=== PATIENT | female | born 1965 | race African-American/Black ===

== ENCOUNTER 2018-03-21 00:48 | Inpatient (IN) | payer MEDICAID ==
[~2018-03-21] VITALS: Ht 157.5 cm; Wt 63.7 kg
[2018-03-21] MEDS ORDERED: IPRATROPIUM/ALBUTEROL 0.5-3(2.5)MG/3ML NEB HHN ONE (03:15)
[2018-03-21] MEDS ORDERED: IBUPROFEN 600MG TABLET PO ONE (03:15)
[2018-03-21] MEDS ORDERED: ONDANSETRON HCL 4MG/2ML INJ IV ONE ×2 (04:45→09:00)
[2018-03-21] MEDS ORDERED: MORPHINE SULFATE 10 MG/ML CPJ IV ONE (04:45)
[2018-03-21 05:20] LABS: BASOPHILS % 0.5 % (0.0-2.0); EOSINOPHILS % 1.3 % (0.0-5.0); HEMATOCRIT. 38.1 % (36.0-48.0); LYMPHOCYTES % 28.4 % (20.0-50.0); MEAN CORPUSCULAR HEMOGLOBIN 34.7 pg (28.0-32.0); MEAN CORPUSCULAR VOLUME 101.9 fL (81.0-99.0); MEAN PLATELET VOLUME 10.2 fl (7.4-10.4); MONOCYTES % 9.1 % (2.0-8.0); NEUTROPHILS % 60.7 % (40.0-76.0); PLATELET 198 x1000/uL (130-400); RED BLOOD CELL COUNT 3.74 mill/uL (4.2-5.4); RED CELL DISTRIBUTION WIDTH 12.9 % (11.6-14.6)
[2018-03-21 05:27] LABS: CHLORIDE 104 mEq/L (98-107)
[2018-03-21] MEDS ORDERED: METOCLOPRAMIDE HCL 10MG/2ML VIAL IV ONE (06:30)
[2018-03-21] MEDS ORDERED: IOHEXOL-300 100 ML BOTTLE ONE (06:57)
[2018-03-21] MEDS ORDERED: IPRATROPIUM BROMIDE (0.02%) 0.5MG/2.5ML NEB HHN STA (08:25)
[2018-03-21] MEDS ORDERED: ALBUTEROL (0.083%) 2.5MG/3ML NEB HHN STA (08:25)
[2018-03-21] MEDS ORDERED: PREDNISONE 20MG TABLET PO SCH (09:00)
[2018-03-21 10:56] LABS: BG BASE EXCESS 1.2 mmol/L (-2.0-2.0); BG CARBOXYHEMOGLOBIN 4.4 % (0.5-1.5); BG DEOXYHEMOGLOBIN 18.1 % (0.0-5.0); BG FRACTION INSPIRED OXYGEN 21; BG HCO3 ACT 26.6 mmol/L (22.0-26.0); BG METHEMOGLOBIN 0.2 % (0.0-1.5); BG OXYHEMOGLOBIN 77.3 % (94.0-97.0); BG PCO2 45.4 mmHg (35.0-45.0); BG PH 7.386 (7.350-7.450); BG SAMPLE SITE RIGHT BRACHIAL; BG TOTAL HEMOGLOBIN 13.7 g/dL (12.0-18.0); BG VENT MODE ROOM AIR
[2018-03-21] MEDS ORDERED: CEFTRIAXONE 1 G PREMIX 50 ML IV ONE (11:45)
[2018-03-21] MEDS ORDERED: AZITHROMYCIN 500 MG TABLET PO ONE (11:45)
[2018-03-21 12:13] LABS: BG BASE EXCESS 2.5 mmol/L (-2.0-2.0); BG CARBOXYHEMOGLOBIN 3.9 % (0.5-1.5); BG DEOXYHEMOGLOBIN 16.6 % (0.0-5.0); BG FRACTION INSPIRED OXYGEN 21; BG HCO3 ACT 27.4 mmol/L (22.0-26.0); BG METHEMOGLOBIN 0.2 % (0.0-1.5); BG OXYGEN SATURATION 82.7 % (92.0-98.5); BG OXYHEMOGLOBIN 79.3 % (94.0-97.0); BG PCO2 43.5 mmHg (35.0-45.0); BG PH 7.417 (7.350-7.450); BG PO2 45.9 mmHg (75.0-100.0); BG SAMPLE SITE RIGHT BRACHIAL; BG TOTAL HEMOGLOBIN 13.6 g/dL (12.0-18.0); BG VENT MODE ROOM AIR
[2018-03-21 12:18] LABS: CLARITY URINE CLEAR (CLEAR); COLOR URINE YELLOW (YELLOW); KETONES URINE NEGATIVE (NEGATIVE); LEUKOCYTE ESTERASE URINE NEGATIVE (NEGATIVE); NITRITE URINE NEGATIVE (NEGATIVE); OCCULT BLOOD URINE NEGATIVE (NEGATIVE); PROTEIN URINE TRACE (NEGATIVE); SPECIFIC GRAVITY URINE 1.086 (1.005-1.030); UROBILINOGEN URINE 0.2 E.U./dL (0.2-1.0)
[2018-03-21] MEDS ORDERED: POTASSIUM CHLORIDE 20MEQ TABLET SR PO ONE (14:45)
[2018-03-21] MEDS ORDERED: IPRATROPIUM/ALBUTEROL 0.5-3(2.5)MG/3ML NEB HHN PRN (21:21)
[2018-03-21] MEDS ORDERED: ONDANSETRON HCL 4MG/2ML INJ IV PRN (21:21)
[2018-03-21] MEDS ORDERED: ACETAMINOPHEN 325MG TABLET PO PRN (21:21)
[2018-03-21] MEDS ORDERED: METHYLPREDNISOLONE SOD SUCC 40 MG/ML VIAL IV NR (21:59)
[2018-03-21] MEDS ORDERED: NICOTINE 7MG PATCH TD NR (22:15)
[2018-03-21] MEDS ORDERED: MONTELUKAST SODIUM 10MG TABLET PO NR (22:15)
[2018-03-21] MEDS: HYDROCODONE/ACETAMINOPHEN 5/325MG TABLET PO PRN (22:30)
[2018-03-22 05:26] LABS: BASOPHILS % 0.1 % (0.0-2.0); HEMATOCRIT. 37.4 % (36.0-48.0); HEMOGLOBIN. 12.9 g/dL (12.0-16.0); LYMPHOCYTES % 8.5 % (20.0-50.0); MEAN CORPUSCULAR HEMOGLOBIN 35.2 pg (28.0-32.0); MEAN CORPUSCULAR VOLUME 102.1 fL (81.0-99.0); MEAN PLATELET VOLUME 10.8 fl (7.4-10.4); MONOCYTES % 2.7 % (2.0-8.0); NEUTROPHILS % 88.7 % (40.0-76.0); PLATELET 217 x1000/uL (130-400); RED BLOOD CELL COUNT 3.66 mill/uL (4.2-5.4); RED CELL DISTRIBUTION WIDTH 12.6 % (11.6-14.6)
[2018-03-22 05:32] LABS: CHLORIDE 101 mEq/L (98-107)
[2018-03-22] MEDS ORDERED: METHYLPREDNISOLONE SOD SUCC 40 MG/ML VIAL IV SCH ×2 (06:00→14:00)
[2018-03-22 10:49] VITALS: BP 179/83
[2018-03-22 10:54] VITALS: BP 179/83
[2018-03-22] MEDS: HYDROCODONE/ACETAMINOPHEN 5/325MG TABLET PO PRN ×2 (11:19→20:24)
[2018-03-22] MEDS: NICOTINE 7MG PATCH TD SCH ×2 (11:30→14:58)
[2018-03-22] MEDS ORDERED: TRAZ-212 MT (11:33)
[2018-03-22] MEDS ORDERED: QUET400T MT (11:38)
[2018-03-22] MEDS ORDERED: HYDR12.529 PO (11:38)
[2018-03-22] MEDS ORDERED: ASPI-1159 PO (11:38)
[2018-03-22] MEDS ORDERED: FURO-152 PO (11:38)
[2018-03-22] MEDS ORDERED: FLUO10CA25 PO (11:38)
[2018-03-22] MEDS ORDERED: CLONIDINE 0.1MG TABLET PO PRN (13:30)
[2018-03-22 14:38] LABS: BG BASE EXCESS 2.9 mmol/L (-2.0-2.0); BG CARBOXYHEMOGLOBIN 1.8 % (0.5-1.5); BG DEOXYHEMOGLOBIN 9.1 % (0.0-5.0); BG FRACTION INSPIRED OXYGEN 21; BG HCO3 ACT 26.2 mmol/L (22.0-26.0); BG METHEMOGLOBIN 0.3 % (0.0-1.5); BG OXYGEN SATURATION 90.7 % (92.0-98.5); BG OXYHEMOGLOBIN 88.8 % (94.0-97.0); BG PO2 57.4 mmHg (75.0-100.0); BG SAMPLE SITE RIGHT BRACHIAL; BG TOTAL HEMOGLOBIN 13.9 g/dL (12.0-18.0); BG VENT MODE ROOM AIR
[2018-03-22 16:00] VITALS: BP 138/75
[2018-03-22] MEDS ORDERED: LEVOFLOXACIN 750MG PREMIX 150 ML IV SCH (19:00)
[2018-03-22] MEDS: MONTELUKAST SODIUM 10MG TABLET PO SCH (20:25)
[2018-03-22] MEDS: AMLODIPINE 5MG TABLET PO SCH (20:25)
[2018-03-23] MEDS: IPRATROPIUM/ALBUTEROL 0.5-3(2.5)MG/3ML NEB HHN SCH ×8 (04:00→20:37)
[2018-03-23] MEDS: HYDROCODONE/ACETAMINOPHEN 5/325MG TABLET PO PRN ×2 (04:08→20:53)
[2018-03-23 08:00] VITALS: BP_SYST 148; BP_SYST 153; BP_DIAS 81; BP_DIAS 89
[2018-03-23] MEDS: AMLODIPINE 5MG TABLET PO SCH ×2 (09:09→22:54)
[2018-03-23] MEDS: PREDNISONE 20MG TABLET PO SCH (09:09)
[2018-03-23] MEDS: LEVOFLOXACIN 750MG PREMIX 150 ML IV SCH (09:41)
[2018-03-23 14:01] VITALS: BP 149/90
[2018-03-23 16:00] VITALS: BP 140/83
[2018-03-23 19:01] LABS: LDL CHOLESTEROL 96 mg/dL (5-100)
[2018-03-23 19:03] LABS: CREATINE KINASE 67 IU/L (26-192)
[2018-03-23 19:04] LABS: CREATINE KINASE MB FRACTION < 1.0 ng/mL (0.5-3.6)
[2018-03-23 19:09] LABS: HDL CHOLESTEROL 102 mg/dL (40-59)
[2018-03-23 20:00] VITALS: BP 148/91
[2018-03-23] MEDS: HYDRALAZINE HCL 25MG TABLET PO SCH (22:53)
[2018-03-23] MEDS: MONTELUKAST SODIUM 10MG TABLET PO SCH (22:53)
[2018-03-24] VITALS (7 sets, daily range): BP systolic 115–153; BP diastolic 63–94
[2018-03-24] MEDS: IPRATROPIUM/ALBUTEROL 0.5-3(2.5)MG/3ML NEB HHN SCH ×7 (00:34→20:27)
[2018-03-24] MEDS: HYDROCODONE/ACETAMINOPHEN 5/325MG TABLET PO PRN ×3 (04:34→19:07)
[2018-03-24] MEDS: HYDRALAZINE HCL 25MG TABLET PO SCH ×2 (09:25→21:42)
[2018-03-24] MEDS: PREDNISONE 20MG TABLET PO SCH (09:25)
[2018-03-24] MEDS: NICOTINE 7MG PATCH TD SCH (09:26)
[2018-03-24] MEDS: AMLODIPINE 5MG TABLET PO SCH ×2 (09:26→21:42)
[2018-03-24] MEDS: LEVOFLOXACIN 750MG PREMIX 150 ML IV SCH (09:59)
[2018-03-24] MEDS: BUDESONIDE 0.5MG/2ML NEB HHN SCH (20:27)
[2018-03-24 20:50] LABS: T4 FREE 0.72 ng/dL (0.76-1.46)
[2018-03-24] MEDS: MONTELUKAST SODIUM 10MG TABLET PO SCH (21:42)
[2018-03-24] MEDS: ZOLPIDEM TARTRATE 5MG TABLET PO PRN (21:42)
[2018-03-25] VITALS: BP 129/76
[2018-03-25] MEDS: IPRATROPIUM/ALBUTEROL 0.5-3(2.5)MG/3ML NEB HHN SCH ×5 (00:15→21:15)
[2018-03-25] MEDS: HYDROCODONE/ACETAMINOPHEN 5/325MG TABLET PO PRN ×3 (03:38→20:33)
[2018-03-25 04:00] VITALS: BP 142/88
[2018-03-25 08:00] VITALS: BP 133/78
[2018-03-25] MEDS: PREDNISONE 20MG TABLET PO SCH (08:29)
[2018-03-25] MEDS: HYDRALAZINE HCL 25MG TABLET PO SCH ×2 (08:29→20:34)
[2018-03-25] MEDS: AMLODIPINE 5MG TABLET PO SCH ×2 (08:29→20:34)
[2018-03-25] MEDS: NICOTINE 7MG PATCH TD SCH (08:30)
[2018-03-25] MEDS: LEVOFLOXACIN 750MG PREMIX 150 ML IV SCH (10:42)
[2018-03-25 12:00] VITALS: BP 112/75
[2018-03-25 16:00] VITALS: BP 125/75
[2018-03-25] MEDS: BUDESONIDE 0.5MG/2ML NEB HHN SCH ×2 (17:41→21:15)
[2018-03-25 20:00] VITALS: BP 142/84
[2018-03-25] MEDS: MONTELUKAST SODIUM 10MG TABLET PO SCH (20:33)
[2018-03-25] MEDS: ZOLPIDEM TARTRATE 5MG TABLET PO PRN (20:34)
[2018-03-26 00:01] LABS: BASOPHILS % 0.1 % (0.0-2.0); EOSINOPHILS % 0.1 % (0.0-5.0); HEMATOCRIT. 40.9 % (36.0-48.0); HEMOGLOBIN. 13.6 g/dL (12.0-16.0); LYMPHOCYTES % 14.5 % (20.0-50.0); MEAN CORPUSCULAR HEMOGLOBIN 34.4 pg (28.0-32.0); MEAN CORPUSCULAR VOLUME 103.8 fL (81.0-99.0); MEAN PLATELET VOLUME 10.6 fl (7.4-10.4); MONOCYTES % 9.6 % (2.0-8.0); NEUTROPHILS % 75.7 % (40.0-76.0); PLATELET 226 x1000/uL (130-400); RED BLOOD CELL COUNT 3.94 mill/uL (4.2-5.4); RED CELL DISTRIBUTION WIDTH 13.3 % (11.6-14.6)
[2018-03-26] MEDS: IPRATROPIUM/ALBUTEROL 0.5-3(2.5)MG/3ML NEB HHN SCH ×6 (00:15→21:15)
[2018-03-26 00:16] LABS: CHLORIDE 102 mEq/L (98-107)
[2018-03-26 08:00] VITALS: BP 128/75
[2018-03-26] MEDS: BUDESONIDE 0.5MG/2ML NEB HHN SCH ×2 (09:05→21:15)
[2018-03-26] MEDS: NICOTINE 7MG PATCH TD SCH (09:25)
[2018-03-26] MEDS: HYDRALAZINE HCL 25MG TABLET PO SCH ×2 (09:25→20:33)
[2018-03-26] MEDS: AMLODIPINE 5MG TABLET PO SCH ×2 (09:25→20:33)
[2018-03-26] MEDS: LEVOFLOXACIN 750MG PREMIX 150 ML IV SCH (09:26)
[2018-03-26] MEDS: HYDROCODONE/ACETAMINOPHEN 5/325MG TABLET PO PRN ×2 (09:28→20:35)
[2018-03-26 12:00] VITALS: BP 107/51
[2018-03-26 15:39] VITALS: BP 120/74
[2018-03-26 20:00] VITALS: BP 109/57
[2018-03-26] MEDS: MONTELUKAST SODIUM 10MG TABLET PO SCH (20:34)
[2018-03-27] VITALS: BP 131/73
[2018-03-27] MEDS: IPRATROPIUM/ALBUTEROL 0.5-3(2.5)MG/3ML NEB HHN SCH ×7 (01:18→23:38)
[2018-03-27 04:00] VITALS: BP 128/84
[2018-03-27 08:00] VITALS: BP 127/80
[2018-03-27] MEDS: HYDRALAZINE HCL 25MG TABLET PO SCH ×2 (08:48→21:00)
[2018-03-27] MEDS: AMLODIPINE 5MG TABLET PO SCH ×2 (08:49→21:00)
[2018-03-27] MEDS: NICOTINE 7MG PATCH TD SCH (08:50)
[2018-03-27] MEDS: LEVOFLOXACIN 750MG PREMIX 150 ML IV SCH (08:50)
[2018-03-27 12:01] VITALS: BP 110/69
[2018-03-27] MEDS: BUDESONIDE 0.5MG/2ML NEB HHN SCH ×3 (13:22→20:54)
[2018-03-27 16:17] VITALS: BP 100/60
[2018-03-27] MEDS: HYDROCODONE/ACETAMINOPHEN 5/325MG TABLET PO PRN ×2 (16:54→22:27)
[2018-03-27 20:00] VITALS: BP 104/59
[2018-03-27] MEDS: MONTELUKAST SODIUM 10MG TABLET PO SCH (21:05)
[2018-03-28] VITALS: BP 109/56
[2018-03-28] MEDS: IPRATROPIUM/ALBUTEROL 0.5-3(2.5)MG/3ML NEB HHN SCH (02:40)
[2018-03-28 04:00] VITALS: BP 116/58
[2018-03-28 07:46] LABS: CHLORIDE 105 mEq/L (98-107); HEMATOCRIT. 36.4 % (36.0-48.0); HEMOGLOBIN. 12.3 g/dL (12.0-16.0); MEAN CORPUSCULAR HEMOGLOBIN 34.7 pg (28.0-32.0); MEAN CORPUSCULAR VOLUME 103.1 fL (81.0-99.0); MEAN PLATELET VOLUME 10.6 fl (7.4-10.4); PLATELET 194 x1000/uL (130-400); RED BLOOD CELL COUNT 3.53 mill/uL (4.2-5.4); RED CELL DISTRIBUTION WIDTH 13.1 % (11.6-14.6)
[2018-03-28 08:00] VITALS: BP 132/67
[2018-03-28] MEDS: HYDROCODONE/ACETAMINOPHEN 5/325MG TABLET PO PRN ×3 (08:58→17:00)
[2018-03-28] MEDS: AMLODIPINE 5MG TABLET PO SCH ×2 (08:58→21:42)
[2018-03-28] MEDS: NICOTINE 7MG PATCH TD SCH (08:58)
[2018-03-28] MEDS: LEVOFLOXACIN 750MG PREMIX 150 ML IV SCH (08:58)
[2018-03-28] MEDS: HYDRALAZINE HCL 25MG TABLET PO SCH ×2 (08:58→21:42)
[2018-03-28 12:00] VITALS: BP 131/78
[2018-03-28 13:20] LABS: PLATELET ESTIMATE NORMAL
[2018-03-28 16:00] VITALS: BP 122/63
[2018-03-28 20:09] VITALS: BP 129/77
[2018-03-28] MEDS: MONTELUKAST SODIUM 10MG TABLET PO SCH (21:41)
[2018-03-29] MEDS: IPRATROPIUM/ALBUTEROL 0.5-3(2.5)MG/3ML NEB HHN SCH ×5 (03:48→21:28)
[2018-03-29 04:30] VITALS: BP 116/71
[2018-03-29 08:00] VITALS: BP 148/85
[2018-03-29] MEDS: HYDRALAZINE HCL 25MG TABLET PO SCH ×2 (08:51→22:27)
[2018-03-29] MEDS: NICOTINE 7MG PATCH TD SCH (08:51)
[2018-03-29] MEDS: AMLODIPINE 5MG TABLET PO SCH ×2 (08:51→22:27)
[2018-03-29] MEDS: LEVOFLOXACIN 750MG PREMIX 150 ML IV SCH (08:52)
[2018-03-29] MEDS: HYDROCODONE/ACETAMINOPHEN 5/325MG TABLET PO PRN ×2 (11:27→22:32)
[2018-03-29 12:00] VITALS: BP 110/61
[2018-03-29 16:00] VITALS: BP 110/63
[2018-03-29 20:00] VITALS: BP 117/70
[2018-03-29] MEDS: MONTELUKAST SODIUM 10MG TABLET PO SCH (22:27)
[2018-03-29] MEDS ORDERED: ZOLPIDEM TARTRATE 5MG TABLET PO PRN (22:30)
[2018-03-30] VITALS: BP 119/70
[2018-03-30] MEDS: IPRATROPIUM/ALBUTEROL 0.5-3(2.5)MG/3ML NEB HHN SCH ×3 (01:19→09:52)
[2018-03-30 04:00] VITALS: BP 121/63
[2018-03-30] MEDS: HYDROCODONE/ACETAMINOPHEN 5/325MG TABLET PO PRN ×2 (06:14→10:53)
[2018-03-30 08:00] VITALS: BP 117/72
[2018-03-30] MEDS: AMLODIPINE 5MG TABLET PO SCH (09:38)
[2018-03-30] MEDS: HYDRALAZINE HCL 25MG TABLET PO SCH (09:38)
[2018-03-30] MEDS: NICOTINE 7MG PATCH TD SCH (09:39)
[2018-03-30 11:18] VITALS: BP 117/72
[2018-03-30 12:00] VITALS: BP 118/82
== END 2018-03-30 15:00 | disposition home or self-care (01) | DRG 133 ==
LOC: ER 00:48 → 5WST 12:02 → ENRESERV 03-22 09:07
PROVIDERS: ADMIT Internal Medicine; ATTEND Internal Medicine
DX: J96.01 Acute respiratory failure with hypoxia (principal); J18.9 Pneumonia, unspecified organism; F20.9 Schizophrenia, unspecified; J45.901 Unspecified asthma with (acute) exacerbation; S62.624A Displaced fracture of middle phalanx of right ring finger, initial encounter for closed fracture; M94.0 Chondrocostal junction syndrome [Tietze]; E87.6 Hypokalemia; F17.200 Nicotine dependence, unspecified, uncomplicated; F31.9 Bipolar disorder, unspecified; I10 Essential (primary) hypertension; F17.210 Nicotine dependence, cigarettes, uncomplicated; M79.7 Fibromyalgia; E03.9 Hypothyroidism, unspecified; Z79.899 Other long term (current) drug therapy; Z79.82 Long term (current) use of aspirin; Y08.89XA Assault by other specified means, initial encounter; Y93.89 Activity, other specified; Y92.89 Other specified places as the place of occurrence of the external cause; Y99.8 Other external cause status; Z88.0 Allergy status to penicillin
CPT/HCPCS: 36415; 36600; 71046; 71260; 73130; 74177; 78582; 80048; 80061; 82375; 82550; 82553; 82805; 83036; 84145; 84439; 84443; 84481; 84484; 85379; 93005; 93306; 94640; 96374; 97116; 97162; 99285; A9558; C1893; J1956; J2270; J2405; J2765; J2920; J7040; J7050; J7512; J7611; J7620; J7626; Q9967

== ENCOUNTER 2020-04-20 01:27 | Emergency (ER) | payer MEDICAID ==
[~2020-04-20] VITALS: Ht 157.5 cm; Wt 59.0 kg
[~2020-04-20 01:27] MED LIST: ASPI-1497 PO; FLUO10CA25 PO; FURO-152 PO; QUET400T MT; TRAZ-251 MT
[2020-04-20] MEDS ORDERED: SILVER SULFADIAZINE 1% CREAM 50GM TOP SCH (05:15)
[2020-04-20] MEDS ORDERED: HYDROCODONE/ACETAMINOPHEN 10/325MG TABLET PO ONE (05:15)
[2020-04-20 05:25] VITALS: BP 138/86
== END 2020-04-20 05:29 | disposition home or self-care (01) ==
LOC: ER 01:27
DX: T25.211A Burn of second degree of right ankle, initial encounter (principal); T31.0 Burns involving less than 10% of body surface; T79.9XXA Unspecified early complication of trauma, initial encounter; I10 Essential (primary) hypertension; J45.909 Unspecified asthma, uncomplicated; Z88.0 Allergy status to penicillin; Z79.82 Long term (current) use of aspirin; Z88.8 Allergy status to other drugs, medicaments and biological substances
CPT/HCPCS: 10060; 16020; 99284

== ENCOUNTER 2022-01-29 11:11 | Inpatient (IN) | payer MEDICAID, OTHER ==
[~2022-01-29] VITALS: Ht 157.5 cm; Wt 60.8 kg
[2022-01-29] MEDS ORDERED: IPRATROPIUM BROMIDE (0.02%) 0.5MG/2.5ML NEB HHN STA (11:26)
[2022-01-29] MEDS ORDERED: METHYLPREDNISOLONE SOD SUCC 125 MG/2 ML VIAL IV NR ×2 (11:26→16:30)
[2022-01-29] MEDS ORDERED: METHYLPREDNISOLONE SOD SUCC 125 MG/2 ML VIAL IV STA (11:26)
[2022-01-29] MEDS ORDERED: MAGNESIUM 2 G PREMIX 50 ML IV STA (11:26)
[2022-01-29] MEDS ORDERED: ALBUTEROL (0.083%) 2.5MG/3ML NEB HHN STA (11:26)
[2022-01-29 11:53] LABS: BASOPHILS % 0.2 % (0.0-2.0); EOSINOPHILS % 0.5 % (0.0-5.0); HEMATOCRIT. 44.1 % (36.0-48.0); HEMOGLOBIN. 14.9 g/dL (12.0-16.0); MEAN CORPUSCULAR HEMOGLOBIN 33.7 pg (28.0-32.0); MEAN CORPUSCULAR VOLUME 99.3 fL (81.0-99.0); MEAN PLATELET VOLUME 10.4 fl (7.4-10.4); MONOCYTES % 11.5 % (2.0-8.0); NEUTROPHILS % 73.8 % (40.0-76.0); PLATELET 158 x1000/uL (130-400); RED BLOOD CELL COUNT 4.44 mill/uL (4.2-5.4); RED CELL DISTRIBUTION WIDTH 12.6 % (11.6-14.6)
[2022-01-29] MEDS ORDERED: LEVOFLOXACIN 750MG PREMIX 150 ML IV ONE (12:00)
[2022-01-29 12:08] LABS: CHLORIDE 103 mEq/L (98-107)
[2022-01-29 12:20] LABS: BG BASE EXCESS 0.8 mmol/L (-2.0-2.0); BG CARBOXYHEMOGLOBIN 2.8 % (0.5-1.5); BG DEOXYHEMOGLOBIN 2.1 % (0.0-5.0); BG FRACTION INSPIRED OXYGEN 40; BG HCO3 ACT 24.2 mmol/L (22.0-26.0); BG METHEMOGLOBIN 0.4 % (0.0-1.5); BG OXYGEN SATURATION 97.8 % (92.0-98.5); BG OXYHEMOGLOBIN 94.7 % (94.0-97.0); BG PCO2 34.9 mmHg (35.0-45.0); BG PH 7.458 (7.350-7.450); BG PO2 100.1 mmHg (75.0-100.0); BG SAMPLE SITE RIGHT RADIAL; BG TOTAL HEMOGLOBIN 14.4 g/dL (12.0-18.0); BG VENT MODE MASK - BIPAP
[2022-01-29] MEDS ORDERED: DIPHENHYDRAMINE 50MG/ML VIAL IV PRN (16:00)
[2022-01-29] MEDS ORDERED: ONDANSETRON HCL 4MG/2ML INJ IV PRN (16:00)
[2022-01-29] MEDS ORDERED: ACETAMINOPHEN 325MG TABLET PO PRN (16:00)
[2022-01-29] MEDS ORDERED: IPRATROPIUM/ALBUTEROL 0.5-3(2.5)MG/3ML NEB HHN PRN (16:00)
[2022-01-29] MEDS ORDERED: AZITHROMYCIN 500 MG in DEXT 5% WATER 250 ML IV SCH ×2 (16:30→20:00)
[2022-01-29] MEDS ORDERED: AMLODIPINE 5MG TABLET PO SCH (16:30)
[2022-01-29 17:47] VITALS: BP 148/79
[2022-01-29 18:00] VITALS: BP 151/83
[2022-01-29] MEDS: IPRATROPIUM/ALBUTEROL 0.5-3(2.5)MG/3ML NEB HHN SCH (19:57)
[2022-01-29 20:15] VITALS: BP 143/99
[2022-01-29] MEDS: AMLODIPINE 5MG TABLET PO SCH (21:26)
[2022-01-29] MEDS: METHYLPREDNISOLONE SOD SUCC 125 MG/2 ML VIAL IV SCH (21:36)
[2022-01-29 22:15] VITALS: BP 126/76
[2022-01-30] VITALS (14 sets, daily range): BP systolic 113–187; BP diastolic 27–93
[2022-01-30] MEDS: IPRATROPIUM/ALBUTEROL 0.5-3(2.5)MG/3ML NEB HHN SCH ×6 (02:04→19:45)
[2022-01-30] MEDS: METHYLPREDNISOLONE SOD SUCC 125 MG/2 ML VIAL IV SCH ×2 (05:30→09:32)
[2022-01-30 07:13] LABS: BASOPHILS % 0.1 % (0.0-2.0); HEMATOCRIT. 40.5 % (36.0-48.0); HEMOGLOBIN. 13.7 g/dL (12.0-16.0); LYMPHOCYTES % 10.7 % (20.0-50.0); MEAN CORPUSCULAR HEMOGLOBIN 33.8 pg (28.0-32.0); MEAN CORPUSCULAR VOLUME 100.3 fL (81.0-99.0); MEAN PLATELET VOLUME 11.1 fl (7.4-10.4); MONOCYTES % 2.8 % (2.0-8.0); NEUTROPHILS % 86.4 % (40.0-76.0); PLATELET 159 x1000/uL (130-400); RED BLOOD CELL COUNT 4.04 mill/uL (4.2-5.4)
[2022-01-30 08:27] LABS: CHLORIDE 99 mEq/L (98-107); T4 FREE 0.75 ng/dL (0.76-1.46)
[2022-01-30] MEDS: AMLODIPINE 5MG TABLET PO SCH (09:31)
[2022-01-30] MEDS ORDERED: HYDR25TA MT (09:37)
[2022-01-30] MEDS ORDERED: HYDR-4009 MT (09:37)
[2022-01-30 11:33] LABS: *AMPHETAMINES SCREEN URINE NEGATIVE (NEGATIVE); *BARBITURATES SCREEN URINE NEGATIVE (NEGATIVE); *BENZODIAZEPINES SCREEN URINE NEGATIVE (NEGATIVE); *COCAINE SCREEN URINE PRESUMTIVE POSITIVE (NEGATIVE); CANNABINOID URINE SCREEN NEGATIVE (NEGATIVE); METHADONE URINE SCREEN NEGATIVE (NEGATIVE); OPIATES URINE SCREEN NEGATIVE (NEGATIVE); PHENCYCLIDINE URINE SCREEN NEGATIVE (NEGATIVE)
[2022-01-30] MEDS: GUAIFENESIN-DM 200MG-20MG/10ML UDC PO PRN ×2 (12:01→20:03)
[2022-01-30] MEDS: LEVOFLOXACIN 750MG PREMIX 150 ML IV SCH (14:15)
[2022-01-30] MEDS: METHYLPREDNISOLONE SOD SUCC 40 MG/ML VIAL IV SCH ×2 (14:15→20:04)
[2022-01-30] MEDS ORDERED: AZITHROMYCIN 500 MG in DEXT 5% WATER 250 ML IV SCH (17:00)
[2022-01-31] VITALS (11 sets, daily range): BP systolic 116–165; BP diastolic 64–99
[2022-01-31] MEDS: IPRATROPIUM/ALBUTEROL 0.5-3(2.5)MG/3ML NEB HHN SCH ×7 (00:16→23:59)
[2022-01-31] MEDS: METHYLPREDNISOLONE SOD SUCC 40 MG/ML VIAL IV SCH ×3 (06:26→21:15)
[2022-01-31 06:52] LABS: HEMATOCRIT. 36.8 % (36.0-48.0); HEMOGLOBIN. 12.6 g/dL (12.0-16.0); MEAN CORPUSCULAR HEMOGLOBIN 33.9 pg (28.0-32.0); MEAN CORPUSCULAR VOLUME 99.2 fL (81.0-99.0); MEAN PLATELET VOLUME 10.6 fl (7.4-10.4); PLATELET 173 x1000/uL (130-400); RED BLOOD CELL COUNT 3.72 mill/uL (4.2-5.4); RED CELL DISTRIBUTION WIDTH 12.6 % (11.6-14.6)
[2022-01-31] MEDS: AMLODIPINE 5MG TABLET PO SCH (08:54)
[2022-01-31 09:43] LABS: CHLORIDE 106 mEq/L (98-107)
[2022-01-31] MEDS: FLUOXETINE HCL 20MG CAPSULE PO SCH (12:26)
[2022-01-31] MEDS: CLONIDINE 0.1MG TABLET PO PRN (12:26)
[2022-01-31 13:48] LABS: PLATELET ESTIMATE NORMAL
[2022-01-31] MEDS: LEVOFLOXACIN 750MG PREMIX 150 ML IV SCH (15:24)
[2022-01-31] MEDS: TRAZODONE HCL 50MG TABLET PO SCH (21:14)
[2022-01-31] MEDS: GUAIFENESIN-DM 200MG-20MG/10ML UDC PO PRN (21:14)
[2022-01-31] MEDS: QUETIAPINE FUMARATE 50MG TABLET PO SCH (21:14)
[2022-02-01] VITALS (12 sets, daily range): BP systolic 114–158; BP diastolic 63–95
[2022-02-01] MEDS: IPRATROPIUM/ALBUTEROL 0.5-3(2.5)MG/3ML NEB HHN SCH ×6 (03:51→23:59)
[2022-02-01] MEDS: METHYLPREDNISOLONE SOD SUCC 40 MG/ML VIAL IV SCH ×3 (06:32→21:18)
[2022-02-01] MEDS: AMLODIPINE 5MG TABLET PO SCH (08:04)
[2022-02-01] MEDS: FLUOXETINE HCL 20MG CAPSULE PO SCH (08:04)
[2022-02-01 08:32] LABS: HEMATOCRIT. 38.2 % (36.0-48.0); HEMOGLOBIN. 12.6 g/dL (12.0-16.0); MEAN CORPUSCULAR VOLUME 99.8 fL (81.0-99.0); PLATELET 186 x1000/uL (130-400); RED BLOOD CELL COUNT 3.83 mill/uL (4.2-5.4); RED CELL DISTRIBUTION WIDTH 12.9 % (11.6-14.6)
[2022-02-01 09:00] LABS: CHLORIDE 105 mEq/L (98-107)
[2022-02-01 14:20] LABS: PLATELET ESTIMATE NORMAL
[2022-02-01] MEDS: LEVOFLOXACIN 750MG PREMIX 150 ML IV SCH (14:59)
[2022-02-01] MEDS: QUETIAPINE FUMARATE 50MG TABLET PO SCH (21:18)
[2022-02-01] MEDS: TRAZODONE HCL 50MG TABLET PO SCH (21:18)
[2022-02-01] MEDS: GUAIFENESIN-DM 200MG-20MG/10ML UDC PO PRN (21:18)
[2022-02-01] MEDS: DIPHENHYDRAMINE 50MG CAPSULE PO PRN (21:28)
[2022-02-02] VITALS (12 sets, daily range): BP systolic 123–166; BP diastolic 74–100
[2022-02-02] MEDS: IPRATROPIUM/ALBUTEROL 0.5-3(2.5)MG/3ML NEB HHN SCH ×4 (03:53→20:52)
[2022-02-02] MEDS: METHYLPREDNISOLONE SOD SUCC 40 MG/ML VIAL IV SCH (05:53)
[2022-02-02] MEDS: FLUOXETINE HCL 20MG CAPSULE PO SCH (08:58)
[2022-02-02] MEDS: AMLODIPINE 5MG TABLET PO SCH (08:58)
[2022-02-02 10:16] LABS: HEMATOCRIT. 37.2 % (36.0-48.0); HEMOGLOBIN. 12.5 g/dL (12.0-16.0); MEAN CORPUSCULAR HEMOGLOBIN 33.5 pg (28.0-32.0); MEAN CORPUSCULAR VOLUME 99.3 fL (81.0-99.0); MEAN PLATELET VOLUME 10.5 fl (7.4-10.4); PLATELET 179 x1000/uL (130-400); RED BLOOD CELL COUNT 3.74 mill/uL (4.2-5.4); RED CELL DISTRIBUTION WIDTH 12.8 % (11.6-14.6)
[2022-02-02 10:30] LABS: CHLORIDE 103 mEq/L (98-107)
[2022-02-02 11:07] LABS: BG BASE EXCESS -0.1 mmol/L (-2.0-2.0); BG CARBOXYHEMOGLOBIN 0.6 % (0.5-1.5); BG DEOXYHEMOGLOBIN 8.8 % (0.0-5.0); BG FRACTION INSPIRED OXYGEN 21; BG HCO3 ACT 24.4 mmol/L (22.0-26.0); BG METHEMOGLOBIN 0.2 % (0.0-1.5); BG OXYGEN SATURATION 91.1 % (92.0-98.5); BG OXYHEMOGLOBIN 90.4 % (94.0-97.0); BG PCO2 39.6 mmHg (35.0-45.0); BG PH 7.408 (7.350-7.450); BG PO2 60.6 mmHg (75.0-100.0); BG SAMPLE SITE RIGHT RADIAL; BG TOTAL HEMOGLOBIN 13.6 g/dL (12.0-18.0); BG VENT MODE ROOM AIR
[2022-02-02] MEDS ORDERED: BENZONATATE 100MG CAPSULE PO PRN (12:45)
[2022-02-02] MEDS: GUAIFENESIN-DM 200MG-20MG/10ML UDC PO PRN ×2 (14:26→21:10)
[2022-02-02] MEDS: LEVOFLOXACIN 750MG PREMIX 150 ML IV SCH (14:26)
[2022-02-02 14:54] LABS: PLATELET ESTIMATE NORMAL
[2022-02-02] MEDS: TRAZODONE HCL 50MG TABLET PO SCH (21:10)
[2022-02-02] MEDS: DIPHENHYDRAMINE 50MG CAPSULE PO PRN (21:10)
[2022-02-02] MEDS: QUETIAPINE FUMARATE 50MG TABLET PO SCH (21:11)
[2022-02-03] VITALS (8 sets, daily range): BP systolic 128–159; BP diastolic 47–109
[2022-02-03] MEDS: CLONIDINE 0.1MG TABLET PO PRN (00:32)
[2022-02-03] MEDS: IPRATROPIUM/ALBUTEROL 0.5-3(2.5)MG/3ML NEB HHN SCH ×3 (00:33→11:52)
[2022-02-03 06:56] LABS: BASOPHILS % 0.1 % (0.0-2.0); EOSINOPHILS % 0.2 % (0.0-5.0); HEMATOCRIT. 37.9 % (36.0-48.0); HEMOGLOBIN. 12.5 g/dL (12.0-16.0); LYMPHOCYTES % 16.3 % (20.0-50.0); MEAN CORPUSCULAR HEMOGLOBIN 32.9 pg (28.0-32.0); MEAN CORPUSCULAR VOLUME 99.5 fL (81.0-99.0); MONOCYTES % 10.6 % (2.0-8.0); NEUTROPHILS % 72.8 % (40.0-76.0); PLATELET 183 x1000/uL (130-400); RED BLOOD CELL COUNT 3.81 mill/uL (4.2-5.4)
[2022-02-03 07:27] LABS: CHLORIDE 105 mEq/L (98-107)
[2022-02-03] MEDS: FLUOXETINE HCL 20MG CAPSULE PO SCH (08:12)
[2022-02-03] MEDS: AMLODIPINE 5MG TABLET PO SCH (08:12)
[2022-02-03] MEDS ORDERED: PREDNISONE 20MG TABLET PO SCH (09:00)
[2022-02-03] MEDS ORDERED: QUET50TA PO (10:11)
[2022-02-03] MEDS ORDERED: P20 MT (10:11)
[2022-02-03] MEDS ORDERED: AMLO5TAB88 PO (10:11)
[2022-02-03] MEDS ORDERED: ALBU18HF2 IH (10:11)
[2022-02-03] MEDS ORDERED: FLUO20CA39 PO (10:11)
[2022-02-03] MEDS ORDERED: FAMO20TA8 MT (10:12)
== END 2022-02-03 13:40 | disposition home or self-care (01) | DRG 816 ==
LOC: ER 11:11 → 3WST 13:24 → EDBEDREQSVC 13:28 → EDBEDREQTM 13:28 → EDBEDREQ 13:28 → ENRESERV 15:58
PROVIDERS: ADMIT Internal Medicine; ATTEND Internal Medicine
PROC: 5A09357 Assistance with Respiratory Ventilation, Less than 24 Consecutive Hours, Continuous Positive Airway Pressure (ICD-10-PCS; principal; 2022-01-29)
DX: T40.5X1A Poisoning by cocaine, accidental (unintentional), initial encounter (principal); J96.01 Acute respiratory failure with hypoxia; A41.9 Sepsis, unspecified organism; J68.0 Bronchitis and pneumonitis due to chemicals, gases, fumes and vapors; J18.9 Pneumonia, unspecified organism; J44.1 Chronic obstructive pulmonary disease with (acute) exacerbation; E05.90 Thyrotoxicosis, unspecified without thyrotoxic crisis or storm; I10 Essential (primary) hypertension; J44.0 Chronic obstructive pulmonary disease with (acute) lower respiratory infection; M79.7 Fibromyalgia; F17.210 Nicotine dependence, cigarettes, uncomplicated; F31.9 Bipolar disorder, unspecified; Y92.89 Other specified places as the place of occurrence of the external cause; Z88.0 Allergy status to penicillin; Z88.8 Allergy status to other drugs, medicaments and biological substances; Z79.899 Other long term (current) drug therapy; Z79.82 Long term (current) use of aspirin
CPT/HCPCS: 36415; 36600; 71045; 80048; 80053; 80305; 82375; 82805; 82962; 83880; 84145; 84439; 84443; 84481; 84484; 85025; 93005; 93306; 93970; 94640; 94660; 99291; J0456; J1200; J1956; J2920; J2930; J3475; J7060; J7512; Q0163

== ENCOUNTER 2022-12-21 22:02 | Emergency (ER) | payer MEDICAID ==
[~2022-12-21] VITALS: Ht 157.5 cm; Wt 65.0 kg
[~2022-12-21 22:02] MED LIST changes: +ALBU18HF2 IH; +AMLO5TAB88 PO; +FAMO20TA8 MT; -FLUO10CA25 PO; +FLUO20CA39 PO; -FURO-152 PO; +HYDR-4009 MT; +P20 MT; -QUET400T MT; +QUET50TA PO
[2022-12-21 22:20] VITALS: BP 164/90; O2SAT 100
[2022-12-21] MEDS ORDERED: ACETAMINOPHEN 325MG TABLET PO STA (23:00)
[2022-12-21] MEDS ORDERED: ONDANSETRON HCL 4MG/2ML INJ IM STA (23:00)
[2022-12-21] MEDS ORDERED: MAGNESIUM/ALUMINUM HYDROXIDE/SIMETHICONE 30ML UDC PO ONE (23:00)
[2022-12-21 23:44] LABS: CLARITY URINE TURBID (CLEAR); COLOR URINE DARK YELLOW (YELLOW); GLUCOSE URINE NEGATIVE (NEGATIVE); KETONES URINE TRACE (NEGATIVE); LEUKOCYTE ESTERASE URINE 1+ (NEGATIVE); NITRITE URINE NEGATIVE (NEGATIVE); OCCULT BLOOD URINE NEGATIVE (NEGATIVE); PROTEIN URINE 3+ (NEGATIVE); SPECIFIC GRAVITY URINE 1.032 (1.005-1.030)
[2022-12-21 23:46] LABS: BACTERIA URINE 2+; YEAST URINE NONE SEEN
[2022-12-21 23:48] LABS: BASOPHILS % 0.4 % (0.0-2.0); EOSINOPHILS % 0.2 % (0.0-5.0); HEMATOCRIT. 43.3 % (36.0-48.0); HEMOGLOBIN. 14.4 g/dL (12.0-16.0); LYMPHOCYTES % 10.4 % (20.0-50.0); MEAN CORPUSCULAR HEMOGLOBIN 32.5 pg (28.0-32.0); MEAN CORPUSCULAR HGB CONC 33.2 g/dL (31.0-37.0); MEAN CORPUSCULAR VOLUME 97.9 fL (81.0-99.0); MEAN PLATELET VOLUME 10.2 fl (7.4-10.4); MONOCYTES % 5.6 % (2.0-8.0); NEUTROPHILS % 83.4 % (40.0-76.0); PLATELET 180 x1000/uL (130-400); RED BLOOD CELL COUNT 4.43 mill/uL (4.2-5.4); RED CELL DISTRIBUTION WIDTH 13.6 % (11.6-14.6); WHITE BLOOD COUNT 11.5 x1000/uL (4.5-11.0)
[2022-12-21 23:56] LABS: CHLORIDE 104 mEq/L (98-107); INDEX HEMOLYSI 1 (1-3); INDEX ICTERIC 1 (1-4); INDEX LIPEMIC 1 (1-3); POTASSIUM 3.4 mEq/L (3.5-5.1); SODIUM 138 mEq/L (136-145)
[2022-12-22 00:06] LABS: ALANINE AMINOTRANSFERASE 37 IU/L (13-61); ALBUMIN 3.9 g/dL (3.4-5.0); ASPARTATE AMINOTRANSFERASE 36 IU/L (15-37); BILIRUBIN TOTAL 0.6 mg/dL (0.1-1.0); CARBON DIOXIDE 27 mEq/L (21-32); CREATININE 0.7 mg/dL (0.6-1.3); GLUCOSE 101 mg/dL (70-105); PROTEIN TOTAL 8.7 g/dL (6.0-8.3); UREA NITROGEN BLOOD 8 mg/dL (7-21)
[2022-12-22] MEDS ORDERED: ACET-2708 PO (00:41)
[2022-12-22] MEDS ORDERED: D-ME473S50 PO (00:41)
[2022-12-22] MEDS ORDERED: METR-167 PO (00:41)
[2022-12-22] MEDS ORDERED: ALBU18HF2 IH (00:41)
[2022-12-22] MEDS ORDERED: AZIT250T12 MT (00:41)
[2022-12-22] MEDS ORDERED: BISM-169 PO (00:45)
[2022-12-22 01:11] VITALS: PULSE 95; RESP 16; TEMP 97.6
[2022-12-22 07:31] LABS: SQUAMOUS EPITHELIAL CELL URINE 1+ /lpf (RARE/1+)
[2022-12-22 07:33] LABS: RBC URINE 0-2 /hpf (0-2)
[2022-12-22] MEDS ORDERED: BUPIVACAINE HCL/PF 0.25% (2.5MG/ML) 10ML ONE ×2 (11:35→12:26)
[2022-12-22] MEDS ORDERED: FENTANYL CITRATE/PF 50MCG/ML 2ML VIAL ONE ×2 (11:36→12:26)
== END 2022-12-22 01:10 | disposition home or self-care (01) ==
LOC: ER 22:02
DX: N39.0 Urinary tract infection, site not specified (principal); K52.9 Noninfective gastroenteritis and colitis, unspecified; J20.9 Acute bronchitis, unspecified; K62.5 Hemorrhage of anus and rectum; J45.909 Unspecified asthma, uncomplicated; F31.9 Bipolar disorder, unspecified; I10 Essential (primary) hypertension; F10.20 Alcohol dependence, uncomplicated; Z88.0 Allergy status to penicillin; Z88.8 Allergy status to other drugs, medicaments and biological substances; Z79.899 Other long term (current) drug therapy
CPT/HCPCS: 99284; 71045; 87426; 80053; 81003; 83690; 85025; 87086; 87804 ×2; 36415; 96372; J2405; C9803; J3010; J3490